=== PATIENT | male | born 1965 | race Caucasian/White ===

== ENCOUNTER 2020-02-02 23:30 | Inpatient (IN) | payer OTHER ==
[2020-02-02] MEDS ORDERED: SODIUM CHLORIDE 1,000 ML IV SCH (23:45)
[2020-02-03 00:09] VITALS: BMI 29.9
[2020-02-03] MEDS ORDERED: LACTATED RINGERS SOLUTION 1000 ML INFUS.BAG IV ONE (00:10)
[2020-02-03 00:48] LABS: BASO % 0.7 % (0-2.0); EOS % 2.7 % (0-4.5); HEMATOCRIT 46.8 % (35.4-49); HEMOGLOBIN 15.5 GM/dL (11.7-16.9); MCH 30.5 pg (25.7-33.7); MCHC 33.2 g/dl (32.0-35.9); MEAN CELL VOLUME 91.6 fl (80-96); MEAN PLT VOLUME 9.9 fl (7.5-11.1); MONO % 8.6 % (3.8-10.2); PLATELET COUNT 212 K/MM3 (134-434); RBC 5.11 M/mm3 (4.00-5.60); RDW 13.2 % (11.9-15.9); WHITE BLOOD COUNT 6.6 K/mm3 (4.0-10.0)
[2020-02-03 00:57] LABS: INR 0.97 (0.83-1.09); PROTHROMBIN TIME (PATIENT) 11.5 SEC (9.7-13.0)
[2020-02-03 01:00] LABS: ACTIVATED PTT 31.2 SECONDS (25.2-36.5)
[2020-02-03 01:22] LABS: CHOLESTEROL 216 mg/dL (50-200); HDL CHOLESTEROL 46 mg/dL (40-60); LDL CHOLESTEROL (ONLY SJRH) 136 mg/dL (5-100); TRIGLYCERIDES 196 mg/dL (0-150)
[2020-02-03 01:23] LABS: ALK PHOS 87 U/L (45-117); ANION GAP 8 MMOL/L (8-16); BILIRUBIN,TOTAL 0.3 mg/dL (0.2-1); BLOOD UREA NITROGEN 12.1 mg/dL (7-18); CALCIUM 8.9 mg/dL (8.5-10.1); CHLORIDE 107 mmol/L (98-107); CO2 27 mmol/L (21-32); CREATININE 0.9 mg/dL (0.55-1.3); GLUCOSE,RANDOM 89 mg/dL (74-106); POTASSIUM 4.2 mmol/L (3.5-5.1); SGOT/AST 27 U/L (15-37); SGPT/ALT 53 U/L (13-61); SODIUM 142 mmol/L (136-145); TOT PROT 7.1 g/dl (6.4-8.2)
[2020-02-03] MEDS ORDERED: ATORVASTATIN CA 80 MG TABLET (FP) PO ONE (02:13)
[2020-02-03] MEDS ORDERED: ATORVASTATIN CA 80 MG TABLET (FP) ONE (02:25)
[2020-02-03 02:32] LABS: PH,URINE 5.5 (5.0-8.0); URINE APPEARANCE CLEAR; URINE BILIRUBIN NEGATIVE (NEGATIVE); URINE COLOR YELLOW; URINE GLUCOSE (UA) NEGATIVE (NEGATIVE); URINE KETONE NEGATIVE (NEGATIVE); URINE LEUK ESTERASE NEGATIVE (NEGATIVE); URINE NITRITE NEGATIVE (NEGATIVE); URINE PROTEIN NEGATIVE (NEGATIVE); URINE UROBILINOGEN 0.2 mg/dL (0.2-1.0)
[2020-02-03] MEDS ORDERED: DEXTROSE 5%-0.45% SALINE 1,000 ML IV SCH (03:00)
[2020-02-03] MEDS ORDERED: predniSONE 20 MG TABLET (UD) PO SCH (13:00)
[2020-02-03] MEDS ORDERED: ARTIFICIAL TEARS (POLYVINYL ALCOHOL) OPTH DROPS OU PRN (13:02)
[2020-02-03] MEDS ORDERED: predniSONE 10 MG TABLET (UD) ONE (13:03)
[2020-02-03] MEDS ORDERED: THIAMINE HCL 200 MG/2 ML VIAL ONE (14:28)
[2020-02-03 17:30] VITALS: BP 130/82; PULSE 68; TEMP 98.2
[2020-02-03] MEDS ORDERED: MINERAL OIL/PETROLATUM,WHITE 3.5 GM TUBE OS SCH (22:00)
[2020-02-04] MEDS ORDERED: ATORVASTATIN CA 20 MG TABLET (FP) PO SCH (22:00)
[2020-02-04] MEDS ORDERED: ATORVASTATIN CA 40 MG TABLET (FP) PO SCH (22:00)
== END 2020-02-03 18:00 | disposition home or self-care (01) | DRG 74 ==
LOC: JER 23:30 → JERBED 02-03 02:11 → OBSVTOIN 02-03 02:11 → J7W 02-03 16:00
PROVIDERS: ADMIT Internal Medicine; ATTEND Internal Medicine
DX: G51.0 Bell's palsy (principal); E78.00 Pure hypercholesterolemia, unspecified
CPT/HCPCS: 36415; 70450-TC; 71045-TC-FY; 80053; 80061; 81003; 82550; 82553; 82962; 83721; 84484; 85025; 85610; 85730; 86618; 86850; 86900; 86901; 93005; 93010; 93880-TC; 99285-25; U0003

== ENCOUNTER 2021-02-18 17:03 | Emergency (ER) | payer OTHER ==
[2021-02-18 17:12] VITALS: BP 137/81; PULSE 77; TEMP 98.2; BMI 29.9
[2021-02-18] MEDS ORDERED: KETOROLAC TROMETHAMINE 60 MG/2 ML VIAL IM ONE (17:43)
[2021-02-18] MEDS ORDERED: KETOROLAC TROMETHAMINE 30 MG/1 ML VIAL ONE (18:13)
== END 2021-02-18 18:36 | disposition home or self-care (01) ==
LOC: JER 17:03 → JERFT 17:03 → JER 18:36
PROC: 3E0233Z Introduction of Anti-inflammatory into Muscle, Percutaneous Approach (ICD-10-PCS; principal; 2021-02-18)
DX: S83.91XA Sprain of unspecified site of right knee, initial encounter (principal); H00.014 Hordeolum externum left upper eyelid
CPT/HCPCS: 73562-TC-RT-FY; 99284-25